=== PATIENT | male | born 1935 | race Caucasian/White ===

== ENCOUNTER 2021-03-05 05:35 | Day surgery (SDC) | payer MEDICARE ==
[2021-02-26 10:34] LABS: BASOPHILS % (AUTO) 0.6 % (0-1); EOSINOPHILS # (AUTO) 0.1 X10'3 (0-0.9); EOSINOPHILS % (AUTO) 1.2 % (0-6); LYMPHOCYTES # (AUTO) 1.5 X10'3 (1.1-4.8); LYMPHOCYTES % (AUTO) 25.3 % (21-51); MEAN CORPUSCULAR HEMOGLOBIN 33.2 PG (27.0-31.0); MEAN CORPUSCULAR HGB CONC 34.1 g/dL (33.0-36.5); MEAN CORPUSCULAR VOLUME 97.3 FL (78-98); MEAN PLATELET VOLUME 7.8 FL (7.4-10.4); MONOCYTES # (AUTO) 0.4 X10'3 (0-0.9); MONOCYTES % (AUTO) 7.6 % (2-12); NEUTROPHILS # (AUTO) 3.8 X10'3 (1.8-7.7); NEUTROPHILS % (AUTO) 65.3 % (42-75); PRE OP HEMATOCRIT 41.1 % (42.0-52.0); PRE OP PLATELET COUNT 209 X10'3 (140-440); RED BLOOD COUNT 4.23 X10'6 (4.70-6.10); RED CELL DISTRIBUTION WIDTH 14.1 % (11.5-14.5)
[2021-02-26 10:50] LABS: PRE OP INR 1.1 INR; PRE OP PROTIME 11.1 SECONDS (9.0-12.0)
[2021-02-26 10:55] LABS: ALBUMIN 3.8 G/DL (3.4-5.0); ALBUMIN/GLOBULIN RATIO 0.9 (1.1-1.5); ALKALINE PHOSPHATASE 45 IU/L (46-116); BLOOD UREA NITROGEN 24 MG/DL (7-18); BUN/CREATININE RATIO 20.9 (5.4-32.0); CALCIUM 9.5 MG/DL (8.5-10.1); CHLORIDE 108 MMOL/L (99-107); CREATININE 1.15 MG/DL (0.60-1.10); PRE OP ALT 25 U/L (30-65); PRE OP ANION GAP 9 (8-16); PRE OP AST 21 U/L (10-37); PRE OP BILIRUB, TOTAL 0.8 MG/DL (0.0-1.0); PRE OP GLUCOSE 103 MG/DL (70-104); PRE OP POTASSIUM 4.3 MMOL/L (3.4-5.1); PRE OP SODIUM 140 MMOL/L (135-145); TOTAL CARBON DIOXIDE 23.5 MMOL/L (24-32); TOTAL PROTEIN 7.9 G/DL (6.4-8.2); eGFR 60 ML/MIN
[2021-03-05] VITALS (19 sets, daily range): BP systolic 122–150; BP diastolic 63–83
[~2021-03-05] VITALS: Ht 177.8 cm; Wt 92.0 kg
[~2021-03-05 05:35] MED LIST: APIX5TAB3 PO; EZET10TA6 PO; ROSU40TA PO; TRAM50TA2 PO; acetaminophen 325mg tablet PO ONE; cefazolin/dext.iso 2gm/100ml IV ONE; celeCOXIB 100mg capsule PO ONE; famotidine 20mg tablet PO ONE; gabapentin 300mg capsule PO ONE; metoclopramide 5 mg/ml inj IV ONE; oxyCODONE SR 10mg (sust. release) tab -2 tabs (20mg) PO ONE; ringers solution, lacted 1,000 ML IV SCH; tranexamic acid 1gm/0.7% sal. 100 ML IV ONE; vancomycin 1,500 MG in NS 300ml IV soln IV ONE
[2021-03-05] MEDS ORDERED: ROPIVAcaine 0.5% (5mg/ml) 30ml vial ONE (06:38)
[2021-03-05] MEDS ORDERED: vancomycin 1,000mg inj ONE (06:38)
[2021-03-05] MEDS ORDERED: epiNEPHrine 1 mg/ml inj ONE (06:38)
[2021-03-05] MEDS ORDERED: cloNIDine hcl/PF 100mcg/ml inj ONE (06:38)
[2021-03-05] MEDS ORDERED: diphenhydrAMINE 25mg capsule PO PRN ×2 (06:45)
[2021-03-05] MEDS ORDERED: HYDROcodone/acetaminophen 10/325mg tab PO PRN (06:45)
[2021-03-05] MEDS ORDERED: HYDROmorphone inj. 0.5 MG/0.5 ML DISP.SYRIN IV PRN (06:45)
[2021-03-05] MEDS ORDERED: bisacodyl 10mg suppository rectal RC PRN (06:45)
[2021-03-05] MEDS: potassium cl 20mEq in 1/2 NS 1,000 ML IV SCH ×3 (06:45→22:45)
[2021-03-05] MEDS ORDERED: ondansetron/PF 4mg/2ml inj IV PRN ×2 (06:45→07:45)
[2021-03-05] MEDS ORDERED: acetaminophen 325mg tablet PO PRN (06:45)
[2021-03-05] MEDS ORDERED: magnesium hydroxide 30ml (MOM) UD suspension PO PRN (06:45)
[2021-03-05] MEDS ORDERED: HYDROmorphone 1 mg/ml syringe IV PRN (06:45)
[2021-03-05] MEDS ORDERED: fentaNYL/PF 50MCG/1 ML 2ML syringe ONE (07:01)
[2021-03-05] MEDS ORDERED: MIDAZolam 1 MG/ML 5ML VIAL ONE (07:24)
[2021-03-05] MEDS ORDERED: propofol inj 20 ML IV ONE ×2 (07:27)
[2021-03-05] MEDS ORDERED: meperidine/PF 25mg/ml syringe IV PRN ×3 (07:45)
[2021-03-05] MEDS ORDERED: morphine 4 MG/ML inj SYRINge IV PRN (07:45)
[2021-03-05] MEDS ORDERED: labetalol 20mg/4ml (5mg/ml) syringe IV PRN (07:45)
[2021-03-05] MEDS ORDERED: proCHLORperazine 10 MG/2 ml inj IV PRN (07:45)
[2021-03-05] MEDS ORDERED: acetaminophen 1,000mg/100ml IV 100 ML IV PRN (07:45)
[2021-03-05] MEDS ORDERED: hydrALAZINE 20mg/ml inj. IV PRN (07:45)
[2021-03-05] MEDS ORDERED: ringers solution, lacted 1,000 ML IV SCH (07:45)
[2021-03-05] MEDS ORDERED: morphine 2 MG/ML inj. syringe IV PRN (07:45)
[2021-03-05] MEDS ORDERED: ePHEDrine 50MG/ML INJ. ONE (07:59)
[2021-03-05] MEDS ORDERED: phenylephrine 10mg/ml inj. ONE (07:59)
[2021-03-05] MEDS: multivitamins, therapeutics tablet PO SCH (08:00)
[2021-03-05] MEDS: ascorbic acid 500mg tablet PO SCH ×2 (08:00→21:38)
--- NOTE | 2021-03-05 08:32 | NUR ---
Received from OR via , accompanied by Anesthesiologist DR MATTHEWS and report given by Anesthesiolgist. PT PRESENTS WITH 18G SHANTELL AC, DRESING ON RIGHT HIP DRY AND INTACT. VSS. Addendum: 03/05/21 at 0840 by Felecia Gustafson RN, RN Amended: Links added.
--- NOTE | 2021-03-05 09:32 | NUR ---
PATIENT HAS MET ALL CRITERIA FOR TRANSFER TO THE /ORTHO FLOOR. VSS. DRESSINGS INTACT. BED LOW, CALL LIGHT PRESENT AND 2 RAILS UP. INES BOLANOS PRESENT TO ACCEPT CARE OF PATIENT AND REPORT HAS BEEN CALLED. ALL QUESTIONS ANSWERED TO ACCEPTING RN. Addendum: 03/05/21 at 0952 by Felecia Arroyo - INES RN Amended: Links added.
[2021-03-05] MEDS ORDERED: tranexamic acid inj. 900 MG in normal saline 100ml IV soln 100 ML IV ONE (13:00)
[2021-03-05] MEDS: gabapentin 300mg capsule PO SCH ×3 (13:00→21:38)
[2021-03-05] MEDS ORDERED: APIX5TAB3 PO (14:24)
[2021-03-05] MEDS: cefazolin/dext.iso 2gm/100ml 100 ML IV SCH (16:32)
[2021-03-05] MEDS: HYDROcodone/acetaminophen 10/325mg tab PO PRN ×2 (17:02→21:46)
--- NOTE | 2021-03-05 18:30 | NUR ---
Patient in room ORTHO 4023. I have received report from Bruna CHACON and had the opportunity to ask questions and assume patient care.
[2021-03-05] MEDS ORDERED: atorvastatin 20mg tablet PO SCH (21:00)
[2021-03-05] MEDS ORDERED: sennosides 8.6mg tablet PO SCH (21:00)
[2021-03-05] MEDS: apixaban 5mg tablet PO SCH (21:38)
[2021-03-06] MEDS: cefazolin/dext.iso 2gm/100ml 100 ML IV SCH (00:18)
[2021-03-06 02:00] VITALS: BP 113/61
[2021-03-06] MEDS: HYDROcodone/acetaminophen 10/325mg tab PO PRN (05:30)
[2021-03-06] MEDS: potassium cl 20mEq in 1/2 NS 1,000 ML IV SCH ×2 (05:32→14:45)
[2021-03-06 06:00] VITALS: BP 133/68
[2021-03-06 06:08] LABS: BASOPHILS % (AUTO) 0.5 % (0-1); EOSINOPHILS # (AUTO) 0.2 X10'3 (0-0.9); EOSINOPHILS % (AUTO) 2.5 % (0-6); HEMATOCRIT 35.1 % (42.0-52.0); HEMOGLOBIN 11.9 g/dl (14.0-17.9); LYMPHOCYTES # (AUTO) 1.3 X10'3 (1.1-4.8); LYMPHOCYTES % (AUTO) 18.4 % (21-51); MEAN CORPUSCULAR HEMOGLOBIN 33.2 PG (27.0-31.0); MEAN CORPUSCULAR VOLUME 97.7 FL (78-98); MEAN PLATELET VOLUME 7.8 FL (7.4-10.4); MONOCYTES # (AUTO) 0.7 X10'3 (0-0.9); MONOCYTES % (AUTO) 9.7 % (2-12); NEUTROPHILS # (AUTO) 4.7 X10'3 (1.8-7.7); NEUTROPHILS % (AUTO) 68.9 % (42-75); PLATELET COUNT 163 X10'3 (140-440); RED BLOOD COUNT 3.59 X10'6 (4.70-6.10); RED CELL DISTRIBUTION WIDTH 14.5 % (11.5-14.5); WHITE BLOOD COUNT 6.8 X10'3 (4.5-11.0)
[2021-03-06 06:17] LABS: ANION GAP 7 (8-16); CHLORIDE 107 MMOL/L (99-107); POTASSIUM 4.3 MMOL/L (3.5-5.1); SODIUM 141 MMOL/L (135-145); TOTAL CARBON DIOXIDE 26.7 MMOL/L (24-32)
--- NOTE | 2021-03-06 06:32 | NUR ---
Patient in room ORTHO 4023. I have received report from kajal cardona and had the opportunity to ask questions and assume patient care.
--- NOTE | 2021-03-06 06:33 | NUR ---
Problems reprioritized. Patient report given, questions answered & plan of care reviewed with Jailyn CHACON.
[2021-03-06] MEDS: ascorbic acid 500mg tablet PO SCH (07:54)
[2021-03-06] MEDS: gabapentin 300mg capsule PO SCH ×2 (07:54→13:11)
[2021-03-06] MEDS: apixaban 5mg tablet PO SCH (07:54)
[2021-03-06] MEDS: multivitamins, therapeutics tablet PO SCH (07:54)
[2021-03-06] MEDS ORDERED: ezetimibe 10mg tablet PO SCH (08:00)
[2021-03-06 10:34] VITALS: BP 119/69
--- NOTE | 2021-03-06 12:02 | NUR ---
Joint surgery consult: Pt s/p R hip surgery this admit and seen by RD for written/verbal high protein ed w/ RD contact information and ensure ONS coupons provided. Pt reports drinks ensures at home and eats higher protein foods such as fish, steak, and chicken. Pt had questions regarding general healthy meal practices which RD verbally reviewed w/ pt. RD encouraged pt to contact dietitian's office if further questions/concerns. Addendum: 03/06/21 at [address] Amended: Links added.
--- NOTE | 2021-03-06 16:42 | NUR ---
PT DISCHARGED IN STABLE CONDITION. LEFT FACILITY IN PRIVATE VEHICLE WITH FRIENDS. IV DC CANULA INTACT. FOLLOW UP INSTRUCTIONS GIVEN, ALL QUESTIONS ANSWERED. ALL BELONGINGS IN HAND. Addendum: 03/06/21 at 1643 by Alena Aguilar RN Amended: Links added.
[2021-03-06] MEDS ORDERED: celeCOXIB 100mg capsule PO SCH (20:00)
== END 2021-03-06 16:30 | disposition home or self-care (01) ==
LOC: PAS 05:35 → ORTHO 4S 06:43 → PAS 03-06 16:30
PROVIDERS: ATTEND Orthopaedic Surgery
DX: M16.11 Unilateral primary osteoarthritis, right hip (principal); I25.10 Atherosclerotic heart disease of native coronary artery without angina pectoris; Z79.899 Other long term (current) drug therapy; Z79.01 Long term (current) use of anticoagulants; Z87.891 Personal history of nicotine dependence; Z72.89 Other problems related to lifestyle; Z95.0 Presence of cardiac pacemaker; Z96.659 Presence of unspecified artificial knee joint
CPT/HCPCS: 27130; 36415; 72170; 80051; 80053; 82948; 85025; 85610; 85730; 86885; 86900; 86901; 87081; 97116; 97161; 97530; C1776; J0171; J0735; J2250; J2370; J2704; J2765; J3010; J3370; J7040; J7120; A4215; A7000; G0378; J2795; J3480